=== PATIENT | male | born 1970 | race Two or more races ===

== ENCOUNTER 2019-08-01 12:51 | Emergency (ER) | payer OTHER ==
[2019-08-01 12:56] VITALS: BP 139/83; PULSE 84; TEMP 98; BMI 29.0
[2019-08-01] MEDS ORDERED: KETOROLAC TROMETHAMINE 60 MG/2 ML VIAL IM ONE (13:54)
--- NOTE | 2019-08-01 13:59 | PDOC ---
History of Present Illness - General Chief Complaint: Pain Stated Complaint: LOWER BACK PAIN/ HEADACHES Time Seen by Provider: 08/01/19 13:28 - History of Present Illness Initial Comments: 08/01/19 13:55 49-year-old male presents for lower back pain with bilateral posterior lateral leg radicular symptoms x3 days without systemic symptoms or urinary complaints. Past History - Past Medical History Allergies/Adverse Reactions: Allergies Allergy/AdvReac Type Severity Reaction Status Date / Time No Known Allergies Allergy Verified 08/01/19 12:56 Home Medications: Ambulatory Orders Cyclobenzaprine HCl [Flexeril 10 mg] 10 mg PO HS PRN #10 tablet 08/01/19 Methylprednisolone [Medrol Dose [place]] 4 mg PO ASDIR #21 tablet 08/01/19 COPD: No Hypercholesterolemia: Yes - Psycho Social/Smoking Cessation Hx Smoking History: Never smoked Review of Systems - Review of Systems Constitutional: No: Fever : No: Incontinence *Physical Exam - Vital Signs Last Vital Signs Temp Pulse Resp BP Pulse Ox 98 F 84 18 139/83 99 08/01/19 12:53 08/01/19 12:53 08/01/19 12:53 08/01/19 12:53 08/01/19 12:53 - Physical Exam Comments: 08/01/19 13:55 Lumbar spine skin: Temperature normal. There is no midline tenderness. Mild bilateral paralumbar musculature spasm and tenderness. No gross sensorimotor deficits 5 out of 5 strength bilateral lower extremities positive straight leg raise test bilaterally neurovascularly intact Medical Decision Making - Medical Decision Making 08/01/19 13:56 Toradol in the ER Medrol Dosepak and Flexeril at home follow-up with neurosurgery Discharge - Discharge Information Problems reviewed: Yes Clinical Impression/Diagnosis: Lumbar radiculopathy Condition: Stable Disposition: HOME - Admission No - Additional Discharge Information Prescriptions: Cyclobenzaprine HCl [Flexeril 10 mg] 10 mg PO HS PRN #10 tablet PRN Reason: Muscle Spasms Methylprednisolone [Medrol Dose [place]] 4 mg PO ASDIR #21 tablet - Follow up/Referral - Patient Discharge Instructions Patient Printed Discharge Instructions: Lumbar Radiculopathy, DI for Lumbar Radiculopathy Additional Instructions: Please take the steroid pack and muscle relaxer as directed. Return to the emergency room for worsening symptoms. Without fail please follow-up with neurosurgery in 1 to 2 days for further evaluation and treatment options. - Post Discharge Activity
[2019-08-01] MEDS ORDERED: KETOROLAC TROMETHAMINE 60 MG/2 ML VIAL ONE (14:02)
== END 2019-08-01 14:47 | disposition home or self-care (01) ==
LOC: JERFT 12:51
PROC: 3E0233Z Introduction of Anti-inflammatory into Muscle, Percutaneous Approach (ICD-10-PCS; principal; 2019-08-01)
DX: M54.16 Radiculopathy, lumbar region (principal)
CPT/HCPCS: 99281-25